=== PATIENT | female | born 1945 | race Caucasian/White ===

== ENCOUNTER 2021-07-03 20:01 | Observation (INO) ==
[2021-07-03] MEDS ORDERED: NITROGLYCERIN SL 0.4 MG TABLET SL STA (20:38)
[2021-07-03] MEDS ORDERED: MORPHINE 2 MG/1 ML SYRINGE IV STA (20:38)
[2021-07-03 20:48] LABS: Basophils % 0.6 % (0.0-0.8); Eosinophils # 0.1 10*3/uL (0.0-0.87); Eosinophils % 1.4 % (0.00-10.9); Hematocrit 40.9 VOL% (35.7-47.0); Hemoglobin 12.9 GM/DL (12.0-16.0); Immature Granulocytes % 0.3 %; Immature Granulocytes Absolute 0.02 #; Lymphocytes # 1.9 10*3/uL (1.4-4.0); Mean Corpuscular HGB Conc 31.5 GM/DL (32-36); Mean Corpuscular Volume 97.6 FL (87-102); Monocytes % 7.7 % (1.7-12.7); Platelet Count 224 T/CUMM (130-400); Red Blood Count 4.19 MC/CUMM (3.8-5.5); Red Cell Distribution Width 12.9 % (9.3-17.3); White Blood Count 6.6 T/CUMM (4-12)
[2021-07-03 21:15] LABS: INR 0.9; PT Patient Result 10.5 SECS (10.5-12.0); Partial Thromboplastin Time 23.2 SECS (23.8-32.1)
[2021-07-03 21:34] LABS: Albumin 3.6 G/DL (3.4-5.0); Bilirubin,Total 0.6 MG/DL (0.20-1.00); Osmolality,Calculated 290.8 MOS/KG (273-304); Potassium 4.9 MMOL/L (3.5-5.1); Total Protein 7.1 G/DL (6.4-8.2)
[2021-07-03] MEDS ORDERED: DEXTROSE 50% 25 GM/50 ML VIAL IV PRN (22:38)
[2021-07-03] MEDS ORDERED: MORPHINE 2 MG/1 ML SYRINGE IV PRN (22:38)
[2021-07-03] MEDS ORDERED: GLUCAGON 1 MG VIAL IM PRN (22:38)
[2021-07-03] MEDS ORDERED: ONDANSETRON 4 MG/2 ML VIAL IV PRN (22:38)
[2021-07-03] MEDS ORDERED: NITROGLYCERIN SL 0.4 MG TABLET SL PRN (22:43)
[2021-07-03] MEDS ORDERED: hydrALAZINE 20 MG/1 ML VIAL IV PRN (22:44)
[2021-07-03] MEDS ORDERED: ENOXAPARIN 100 MG/ML SYRINGE SUBCUT SCH (23:00)
[2021-07-03] MEDS: ENOXAPARIN 100 MG/ML SYRINGE SUBCUT SCH (23:01)
[2021-07-03 23:16] LABS: Basophils % 0.4 % (0.0-0.8); Eosinophils # 0.1 10*3/uL (0.0-0.87); Eosinophils % 1.6 % (0.00-10.9); Hemoglobin 12.5 GM/DL (12.0-16.0); Immature Granulocytes % 0.3 %; Immature Granulocytes Absolute 0.02 #; Lymphocytes # 2.5 10*3/uL (1.4-4.0); Mean Corpuscular HGB Conc 31.3 GM/DL (32-36); Mean Corpuscular Volume 98.3 FL (87-102); Mean Platelet Volume 10.1 FL (9.6-12.0); Monocytes % 9.8 % (1.7-12.7); Neutrophils % 50.9 % (38.7-73.9); Platelet Count 225 T/CUMM (130-400); Red Blood Count 4.07 MC/CUMM (3.8-5.5); Red Cell Distribution Width 12.9 % (9.3-17.3); White Blood Count 6.9 T/CUMM (4-12)
[2021-07-04] MEDS ORDERED: INSULIN REGULAR 100 UNIT/ML SUBCUT STA (01:15)
[2021-07-04 05:01] LABS: Calcium 9.1 MG/DL (8.5-10.1); Osmolality,Calculated 280.8 MOS/KG (273-304); Potassium 3.9 MMOL/L (3.5-5.1); Risk Ratio 4.31
[2021-07-04] MEDS ORDERED: CLINDAMYCIN 300 MG CAPSULE PO SCH (06:00)
[2021-07-04] MEDS: INSULIN REGULAR 100 UNIT/ML SUBCUT SCH ×4 (08:34→20:58)
[2021-07-04] MEDS ORDERED: FUROSEMIDE 20 MG TABLET PO SCH (09:00)
[2021-07-04] MEDS ORDERED: ISOSORBIDE MONONITRATE 30 MG TABLET PO ONE (11:38)
[2021-07-04] MEDS: PANTOPRAZOLE 40 MG TABLET PO SCH (11:47)
[2021-07-04] MEDS: ISOSORBIDE MONONITRATE 60 MG TABLET PO SCH (11:47)
[2021-07-04] MEDS: amLODIPine 2.5 MG TABLET PO SCH (11:47)
[2021-07-04] MEDS: ENOXAPARIN 100 MG/ML SYRINGE SUBCUT SCH (11:47)
[2021-07-04] MEDS: ASPIRIN EC 81 MG TABLET PO SCH (11:47)
[2021-07-04] MEDS: CLOPIDOGREL 75 MG TABLET PO SCH (11:47)
[2021-07-04] MEDS: carvediloL 3.125 MG TABLET PO SCH ×2 (11:47→20:37)
[2021-07-04] MEDS ORDERED: methylPREDNISolone SOD SUC 125 MG/2 ML VIAL IV ONE (12:22)
[2021-07-04] MEDS ORDERED: diphenhydrAMINE 50 MG/1 ML VIAL IV ONE (12:23)
[2021-07-04] MEDS ORDERED: diphenhydrAMINE CAP 25 MG CAPSULE PO ONE (15:05)
[2021-07-04] MEDS ORDERED: DIAZEPAM 5 MG TABLET PO ONE (15:05)
[2021-07-04] MEDS ORDERED: DIAZEPAM 5 MG TABLET ONE (15:26)
[2021-07-04] MEDS ORDERED: HYDROmorphone 2 MG/1 ML VIAL ONE (15:56)
[2021-07-04] MEDS ORDERED: MIDAZOLAM 2 MG/2 ML VIAL ONE (15:56)
[2021-07-04] MEDS: SODIUM CHLORIDE 0.45% 1,000 ML IV SCH (17:59)
[2021-07-04] MEDS ORDERED: INFLUENZA VIRUS VACCINE 0.5 ML SYRINGE IM ONE (18:12)
[2021-07-04] MEDS: ROSUVASTATIN 20 MG TABLET PO SCH (20:36)
[2021-07-04] MEDS: EZETIMIBE 10 MG TABLET PO SCH (20:37)
[2021-07-05] MEDS: SODIUM CHLORIDE 0.45% 1,000 ML IV SCH ×4 (02:20→23:33)
[2021-07-05 05:12] LABS: Basophils % 0.2 % (0.0-0.8); Hematocrit 36.7 VOL% (35.7-47.0); Hemoglobin 11.9 GM/DL (12.0-16.0); Immature Granulocytes % 0.3 %; Immature Granulocytes Absolute 0.02 #; Lymphocytes # 0.8 10*3/uL (1.4-4.0); Lymphocytes % 13.8 % (21.3-54.2); Mean Corpuscular HGB Conc 32.4 GM/DL (32-36); Mean Corpuscular Volume 96.8 FL (87-102); Mean Platelet Volume 10.5 FL (9.6-12.0); Monocytes % 1.2 % (1.7-12.7); Neutrophils % 84.5 % (38.7-73.9); Platelet Count 200 T/CUMM (130-400); Red Blood Count 3.79 MC/CUMM (3.8-5.5); Red Cell Distribution Width 12.8 % (9.3-17.3); White Blood Count 5.9 T/CUMM (4-12)
[2021-07-05 05:45] LABS: Calcium 8.6 MG/DL (8.5-10.1); Osmolality,Calculated 289.2 MOS/KG (273-304); Potassium 4.6 MMOL/L (3.5-5.1)
[2021-07-05] MEDS ORDERED: INSULIN GLARGINE 100 UNIT/ML SUBCUT SCH (09:00)
[2021-07-05] MEDS: PANTOPRAZOLE 40 MG TABLET PO SCH (09:16)
[2021-07-05] MEDS: ISOSORBIDE MONONITRATE 60 MG TABLET PO SCH (09:16)
[2021-07-05] MEDS: amLODIPine 2.5 MG TABLET PO SCH (09:16)
[2021-07-05] MEDS: carvediloL 3.125 MG TABLET PO SCH ×2 (09:16→20:57)
[2021-07-05] MEDS: CLOPIDOGREL 75 MG TABLET PO SCH (09:16)
[2021-07-05] MEDS: ASPIRIN EC 81 MG TABLET PO SCH (09:16)
[2021-07-05] MEDS: CLINDAMYCIN 300 MG CAPSULE PO SCH ×3 (09:16→21:15)
[2021-07-05] MEDS: INSULIN REGULAR 100 UNIT/ML SUBCUT SCH ×5 (09:17→20:57)
[2021-07-05] MEDS ORDERED: INSULIN GLARGINE 100 UNIT/ML SUBCUT ONE (14:30)
[2021-07-05] MEDS: EZETIMIBE 10 MG TABLET PO SCH (20:56)
[2021-07-05] MEDS: ROSUVASTATIN 20 MG TABLET PO SCH (20:57)
[2021-07-06] MEDS: CLINDAMYCIN 300 MG CAPSULE PO SCH (05:08)
[2021-07-06 05:49] LABS: Basophils % 0.5 % (0.0-0.8); Eosinophils % 0.5 % (0.00-10.9); Hematocrit 32.5 VOL% (35.7-47.0); Hemoglobin 10.2 GM/DL (12.0-16.0); Immature Granulocytes % 0.3 %; Immature Granulocytes Absolute 0.02 #; Lymphocytes # 2.2 10*3/uL (1.4-4.0); Lymphocytes % 37.5 % (21.3-54.2); Mean Corpuscular HGB Conc 31.4 GM/DL (32-36); Mean Corpuscular Volume 97.3 FL (87-102); Mean Platelet Volume 10.5 FL (9.6-12.0); Monocytes % 8.9 % (1.7-12.7); Neutrophils % 52.3 % (38.7-73.9); Platelet Count 189 T/CUMM (130-400); Red Blood Count 3.34 MC/CUMM (3.8-5.5); Red Cell Distribution Width 12.9 % (9.3-17.3)
[2021-07-06 06:15] LABS: Calcium 8.2 MG/DL (8.5-10.1); Potassium 3.9 MMOL/L (3.5-5.1)
[2021-07-06] MEDS ORDERED: INSULIN NPH 100 UNIT/ML SUBCUT SCH ×2 (07:30→16:30)
[2021-07-06] MEDS: ASPIRIN EC 81 MG TABLET PO SCH (08:43)
[2021-07-06] MEDS: amLODIPine 2.5 MG TABLET PO SCH (08:43)
[2021-07-06] MEDS: PANTOPRAZOLE 40 MG TABLET PO SCH (08:43)
[2021-07-06] MEDS: CLOPIDOGREL 75 MG TABLET PO SCH (08:44)
[2021-07-06] MEDS: ISOSORBIDE MONONITRATE 60 MG TABLET PO SCH (08:44)
[2021-07-06] MEDS: INSULIN REGULAR 100 UNIT/ML SUBCUT SCH (08:45)
[2021-07-06] MEDS: carvediloL 3.125 MG TABLET PO SCH (08:46)
[2021-07-06 08:56] VITALS: BP 147/66
[2021-07-06] MEDS ORDERED: INSULIN GLARGINE 100 UNIT/ML SUBCUT SCH (09:00)
[2021-07-06] MEDS: SODIUM CHLORIDE 0.45% 1,000 ML IV SCH (11:21)
== END 2021-07-06 11:25 | disposition home or self-care (01) ==
LOC: N.ED 20:01 → INTOOBSV 22:38 → N.EDINP 22:38 → N.TELES 07-04 15:20
PROVIDERS: ADMIT Internal Medicine; ATTEND Internal Medicine

== ENCOUNTER 2021-07-20 16:53 | Inpatient (IN) ==
[2021-07-20] MEDS ORDERED: MORPHINE 2 MG/1 ML SYRINGE IV STA (17:27)
[2021-07-20] MEDS ORDERED: NITROGLYCERIN SL 0.4 MG TABLET SL PRN ×2 (17:27→20:35)
[2021-07-20] MEDS ORDERED: ASPIRIN 325 MG TABLET PO STA (17:27)
[2021-07-20] MEDS ORDERED: NITROGLYCERIN SL 0.4 MG TABLET SL ONE ×2 (17:38→19:56)
[2021-07-20] MEDS ORDERED: ASPIRIN 325 MG TABLET ONE (17:38)
[2021-07-20] MEDS ORDERED: MORPHINE 2 MG/1 ML SYRINGE ONE (17:38)
[2021-07-20 18:29] LABS: Basophils % 0.4 % (0.0-0.8); Eosinophils # 0.1 10*3/uL (0.0-0.87); Eosinophils % 1.3 % (0.00-10.9); Hematocrit 37.3 VOL% (35.7-47.0); Hemoglobin 11.9 GM/DL (12.0-16.0); Immature Granulocytes % 0.4 %; Immature Granulocytes Absolute 0.03 #; Lymphocytes # 1.6 10*3/uL (1.4-4.0); Lymphocytes % 22.9 % (21.3-54.2); Mean Corpuscular HGB Conc 31.9 GM/DL (32-36); Mean Corpuscular Volume 94.9 FL (87-102); Mean Platelet Volume 9.4 FL (9.6-12.0); Monocytes % 6.5 % (1.7-12.7); Neutrophils % 68.5 % (38.7-73.9); Platelet Count 296 T/CUMM (130-400); Red Blood Count 3.93 MC/CUMM (3.8-5.5); Red Cell Distribution Width 13.2 % (9.3-17.3); White Blood Count 7.1 T/CUMM (4-12)
[2021-07-20 18:38] LABS: INR 0.9; PT Patient Result 10.3 SECS (10.5-12.0)
[2021-07-20 18:46] LABS: Albumin 3.7 G/DL (3.4-5.0); Bilirubin,Total 0.5 MG/DL (0.20-1.00); Calcium 9.4 MG/DL (8.5-10.1); Osmolality,Calculated 289.7 MOS/KG (273-304); Potassium 3.8 MMOL/L (3.5-5.1); Total Protein 6.7 G/DL (6.4-8.2)
[2021-07-20] MEDS ORDERED: NITROGLYCERIN SL 0.4 MG TABLET SL STA (19:44)
[2021-07-20] MEDS ORDERED: DEXTROSE 50% 25 GM/50 ML SYRINGE IV PRN (20:33)
[2021-07-20] MEDS ORDERED: ONDANSETRON 4 MG/2 ML VIAL IV PRN (20:33)
[2021-07-20] MEDS ORDERED: GLUCAGON 1 MG VIAL IM PRN (20:33)
[2021-07-20] MEDS ORDERED: ACETAMINOPHEN 325 MG TABLET PO PRN (20:33)
[2021-07-20] MEDS ORDERED: MORPHINE 2 MG/1 ML SYRINGE IV PRN (20:33)
[2021-07-20] MEDS ORDERED: hydrALAZINE 20 MG/1 ML VIAL IV PRN (20:33)
[2021-07-20] MEDS ORDERED: ENOXAPARIN 40 MG/0.4 ML SYRINGE ONE (20:45)
[2021-07-20] MEDS: INSULIN REGULAR 100 UNIT/ML SUBCUT SCH (20:52)
[2021-07-20] MEDS ORDERED: INSULIN REGULAR 100 UNIT/ML ONE (20:55)
[2021-07-20] MEDS ORDERED: ENOXAPARIN 40 MG/0.4 ML SYRINGE SUBCUT SCH (21:00)
[2021-07-21] MEDS: ENOXAPARIN 100 MG/ML SYRINGE SUBCUT SCH ×2 (01:16→12:51)
[2021-07-21 06:12] LABS: Basophils % 0.6 % (0.0-0.8); Eosinophils # 0.1 10*3/uL (0.0-0.87); Eosinophils % 2.7 % (0.00-10.9); Hematocrit 32.8 VOL% (35.7-47.0); Hemoglobin 10.3 GM/DL (12.0-16.0); Immature Granulocytes % 0.2 %; Immature Granulocytes Absolute 0.01 #; Lymphocytes # 2.4 10*3/uL (1.4-4.0); Lymphocytes % 45.5 % (21.3-54.2); Mean Corpuscular HGB Conc 31.4 GM/DL (32-36); Mean Corpuscular Volume 97.3 FL (87-102); Mean Platelet Volume 9.8 FL (9.6-12.0); Monocytes % 9.3 % (1.7-12.7); Neutrophils % 41.7 % (38.7-73.9); Platelet Count 248 T/CUMM (130-400); Red Blood Count 3.37 MC/CUMM (3.8-5.5); Red Cell Distribution Width 13.1 % (9.3-17.3); White Blood Count 5.3 T/CUMM (4-12)
[2021-07-21 06:31] LABS: Albumin 2.9 G/DL (3.4-5.0); Bilirubin,Total 1.1 MG/DL (0.20-1.00); Osmolality,Calculated 283.5 MOS/KG (273-304); Potassium 3.8 MMOL/L (3.5-5.1); Risk Ratio 2.11; Total Protein 5.9 G/DL (6.4-8.2); VLDL Cholesterol 22.6 MG/DL
[2021-07-21] MEDS ORDERED: INSULIN REGULAR 100 UNIT/ML SUBCUT SCH (07:30)
[2021-07-21] MEDS ORDERED: carvediloL 3.125 MG TABLET PO SCH (08:00)
[2021-07-21] MEDS ORDERED: amLODIPine 2.5 MG TABLET PO SCH (09:00)
[2021-07-21] MEDS ORDERED: ERGOCALCIFEROL 50,000 UNIT CAPSULE PO SCH (09:00)
[2021-07-21] MEDS: ISOSORBIDE MONONITRATE 60 MG TABLET PO SCH (09:03)
[2021-07-21] MEDS: PREGABALIN 100 MG CAPSULE PO SCH (09:03)
[2021-07-21] MEDS: FUROSEMIDE 40 MG TABLET PO SCH (09:03)
[2021-07-21] MEDS: PANTOPRAZOLE 40 MG TABLET PO SCH (09:03)
[2021-07-21] MEDS: ROSUVASTATIN 20 MG TABLET PO SCH (09:03)
[2021-07-21] MEDS: INSULIN REGULAR 100 UNIT/ML SUBCUT SCH ×4 (09:03→22:07)
[2021-07-21] MEDS: CLOPIDOGREL 75 MG TABLET PO SCH (09:03)
[2021-07-21] MEDS: ASPIRIN EC 81 MG TABLET PO SCH (09:03)
[2021-07-21] MEDS: amLODIPine 5 MG TABLET PO SCH (09:06)
[2021-07-21] MEDS: carvediloL 12.5 MG TABLET PO SCH ×2 (09:07→22:06)
[2021-07-21] MEDS ORDERED: DEXTROSE 50% 25 GM/50 ML SYRINGE IV PRN (09:08)
[2021-07-21] MEDS ORDERED: GLUCAGON 1 MG VIAL IM PRN (09:08)
[2021-07-21] MEDS: INSULIN NPH 100 UNIT/ML SUBCUT SCH (22:08)
[2021-07-22] MEDS: ENOXAPARIN 100 MG/ML SYRINGE SUBCUT SCH ×2 (00:38→14:10)
[2021-07-22] MEDS: INSULIN REGULAR 100 UNIT/ML SUBCUT SCH ×4 (08:26→22:09)
[2021-07-22] MEDS: carvediloL 12.5 MG TABLET PO SCH ×2 (08:27→21:14)
[2021-07-22] MEDS: PREGABALIN 100 MG CAPSULE PO SCH (08:27)
[2021-07-22] MEDS: CLOPIDOGREL 75 MG TABLET PO SCH (08:27)
[2021-07-22] MEDS: PANTOPRAZOLE 40 MG TABLET PO SCH (08:27)
[2021-07-22] MEDS: ROSUVASTATIN 20 MG TABLET PO SCH (08:27)
[2021-07-22] MEDS: ISOSORBIDE MONONITRATE 60 MG TABLET PO SCH (08:27)
[2021-07-22] MEDS: ASPIRIN EC 81 MG TABLET PO SCH (08:27)
[2021-07-22] MEDS: amLODIPine 5 MG TABLET PO SCH (08:27)
[2021-07-22] MEDS: FUROSEMIDE 40 MG TABLET PO SCH (08:27)
[2021-07-22 10:19] LABS: Calcium 8.3 MG/DL (8.5-10.1); Osmolality,Calculated 283.8 MOS/KG (273-304); Potassium 3.2 MMOL/L (3.5-5.1)
[2021-07-22] MEDS ORDERED: MAGNESIUM SULF RIDER 2 GM/50 ML PREMIX IV PRN (12:05)
[2021-07-22] MEDS: POTASSIUM CHLORIDE RIDER 10 MEQ/100 ML PREMIX IV PRN ×2 (15:30→17:09)
[2021-07-22] MEDS: INSULIN NPH 100 UNIT/ML SUBCUT SCH (22:10)
[2021-07-23] MEDS ORDERED: ENOXAPARIN 100 MG/ML SYRINGE SUBCUT ONE (00:20)
[2021-07-23] MEDS: ENOXAPARIN 100 MG/ML SYRINGE SUBCUT SCH ×2 (00:24→12:38)
[2021-07-23 05:14] LABS: Basophils % 0.6 % (0.0-0.8); Eosinophils # 0.2 10*3/uL (0.0-0.87); Eosinophils % 3.6 % (0.00-10.9); Hematocrit 31.3 VOL% (35.7-47.0); Hemoglobin 9.9 GM/DL (12.0-16.0); Immature Granulocytes % 0.2 %; Immature Granulocytes Absolute 0.01 #; Lymphocytes % 38.6 % (21.3-54.2); Mean Corpuscular HGB Conc 31.6 GM/DL (32-36); Mean Corpuscular Volume 94.8 FL (87-102); Mean Platelet Volume 9.7 FL (9.6-12.0); Monocytes % 10.6 % (1.7-12.7); Neutrophils % 46.4 % (38.7-73.9); Platelet Count 213 T/CUMM (130-400); Red Cell Distribution Width 12.9 % (9.3-17.3); White Blood Count 5.2 T/CUMM (4-12)
[2021-07-23 05:54] LABS: Blood Urea Nitrogen 14 MG/DL (7-18); Calcium 8.5 MG/DL (8.5-10.1); Carbon Dioxide 25 MMOL/L (21-32); Estimated Glom Filtration Rate 81 ML/MIN; Glucose 166 MG/DL (74-106); Osmolality,Calculated 285.3 MOS/KG (273-304); Potassium 3.5 MMOL/L (3.5-5.1); Sodium 141 MMOL/L (136-145)
[2021-07-23] MEDS ORDERED: DIAZEPAM 5 MG TABLET PO ONE (06:00)
[2021-07-23] MEDS ORDERED: diphenhydrAMINE CAP 25 MG CAPSULE PO ONE (06:00)
[2021-07-23] MEDS: SODIUM CHLORIDE 0.45% 1,000 ML IV SCH ×2 (07:31→17:17)
[2021-07-23] MEDS ORDERED: HEPARIN/NACL 0.9% 2 UNITS/ML 2,000 UNIT/1,000 ML BAG IV ONE (08:57)
[2021-07-23] MEDS ORDERED: LIDOCAINE 1%/EPI INJ 20 ML VIAL ONE (08:59)
[2021-07-23] MEDS: CLOPIDOGREL 75 MG TABLET PO SCH (09:20)
[2021-07-23] MEDS: INSULIN REGULAR 100 UNIT/ML SUBCUT SCH ×5 (09:21→21:40)
[2021-07-23] MEDS: carvediloL 12.5 MG TABLET PO SCH ×2 (09:21→21:32)
[2021-07-23] MEDS: PANTOPRAZOLE 40 MG TABLET PO SCH (09:21)
[2021-07-23] MEDS: ASPIRIN EC 81 MG TABLET PO SCH (09:21)
[2021-07-23] MEDS: amLODIPine 5 MG TABLET PO SCH (09:21)
[2021-07-23] MEDS ORDERED: MIDAZOLAM 2 MG/2 ML VIAL ONE (09:38)
[2021-07-23] MEDS ORDERED: fentaNYL 100 MCG/2 ML VIAL ONE ×2 (09:39→10:06)
[2021-07-23] MEDS ORDERED: methylPREDNISolone SOD SUC 125 MG/2 ML VIAL ONE (09:48)
[2021-07-23] MEDS: PREGABALIN 100 MG CAPSULE PO SCH (10:37)
[2021-07-23] MEDS: ISOSORBIDE MONONITRATE 60 MG TABLET PO SCH (10:37)
[2021-07-23] MEDS: FUROSEMIDE 40 MG TABLET PO SCH (10:37)
[2021-07-23] MEDS: POTASSIUM CHLORIDE 20 MEQ TABLET PO PRN ×2 (10:37→17:06)
[2021-07-23] MEDS: ROSUVASTATIN 20 MG TABLET PO SCH (10:41)
[2021-07-23] MEDS: INSULIN NPH 100 UNIT/ML SUBCUT SCH (21:41)
[2021-07-24] MEDS: ENOXAPARIN 100 MG/ML SYRINGE SUBCUT SCH (01:27)
[2021-07-24] MEDS: INSULIN REGULAR 100 UNIT/ML SUBCUT SCH ×2 (08:38→12:14)
[2021-07-24] MEDS: ISOSORBIDE MONONITRATE 60 MG TABLET PO SCH (08:38)
[2021-07-24] MEDS: ROSUVASTATIN 20 MG TABLET PO SCH (08:38)
[2021-07-24] MEDS: amLODIPine 5 MG TABLET PO SCH (08:39)
[2021-07-24] MEDS: FUROSEMIDE 40 MG TABLET PO SCH (08:39)
[2021-07-24] MEDS: ASPIRIN EC 81 MG TABLET PO SCH (08:39)
[2021-07-24] MEDS: PREGABALIN 100 MG CAPSULE PO SCH (08:39)
[2021-07-24] MEDS: CLOPIDOGREL 75 MG TABLET PO SCH (08:39)
[2021-07-24] MEDS: PANTOPRAZOLE 40 MG TABLET PO SCH (08:39)
[2021-07-24] MEDS: carvediloL 12.5 MG TABLET PO SCH (08:39)
[2021-07-24 09:06] LABS: Basophils % 0.1 % (0.0-0.8); Hemoglobin 10.5 GM/DL (12.0-16.0); Immature Granulocytes % 0.8 %; Immature Granulocytes Absolute 0.07 #; Lymphocytes # 1.5 10*3/uL (1.4-4.0); Lymphocytes % 17.3 % (21.3-54.2); Mean Corpuscular HGB Conc 31.8 GM/DL (32-36); Mean Corpuscular Volume 94.3 FL (87-102); Mean Platelet Volume 9.8 FL (9.6-12.0); Monocytes % 7.3 % (1.7-12.7); Neutrophils % 74.5 % (38.7-73.9); Platelet Count 246 T/CUMM (130-400); White Blood Count 8.5 T/CUMM (4-12)
[2021-07-24 09:35] LABS: Osmolality,Calculated 289.5 MOS/KG (273-304); Potassium 4.4 MMOL/L (3.5-5.1)
[2021-07-24] MEDS ORDERED: INSULIN LISPRO 100 UNIT/ML SUBCUT SCH (11:30)
[2021-07-24 11:33] VITALS: BP 130/63
[2021-07-25] MEDS ORDERED: ENOXAPARIN 40 MG/0.4 ML SYRINGE SUBCUT SCH (01:30)
[2021-07-25] MEDS ORDERED: VERAPAMIL SR 120 MG TABLET PO SCH (09:00)
== END 2021-07-24 13:08 | disposition home or self-care (01) | DRG 281 ==
LOC: N.ED 16:53 → N.EDINP 16:53 → SUATTDRO 20:32 → N.EDINP 23:45 → N.TELEN 07-21 00:09
PROVIDERS: ADMIT Internal Medicine; ATTEND Emergency Medicine

== ENCOUNTER 2022-08-13 07:38 | Observation (INO) ==
[2022-08-13] MEDS ORDERED: HEPARIN 5,000 UNIT/1 ML VIAL IV ONE (08:04)
[2022-08-13] MEDS ORDERED: ASPIRIN 325 MG TABLET PO STA (08:04)
[2022-08-13] MEDS ORDERED: MORPHINE 2 MG/1 ML SYRINGE IV STA (08:04)
[2022-08-13] MEDS ORDERED: METOPROLOL TARTRATE 5 MG/5 ML VIAL IV STA (08:04)
[2022-08-13] MEDS ORDERED: NITROGLYCERIN 2% OINT 1 INCH/GM PACK TOP STA (08:04)
[2022-08-13] MEDS ORDERED: ONDANSETRON 4 MG/2 ML VIAL IV STA (08:04)
[2022-08-13 08:33] LABS: Albumin 3.5 G/DL (3.4-5.0); Bilirubin,Total 0.7 MG/DL (0.20-1.00); Calcium 9.2 MG/DL (8.5-10.1); Osmolality,Calculated 295.4 MOS/KG (273-304); Potassium 4.3 MMOL/L (3.5-5.1); Total Protein 6.6 G/DL (6.4-8.2)
[2022-08-13 09:05] LABS: Basophils % 0.4 % (0.0-0.8); Eosinophils # 0.1 10*3/uL (0.0-0.87); Eosinophils % 1.4 % (0.00-10.9); Hematocrit 40.8 VOL% (35.7-47.0); Hemoglobin 13.1 GM/DL (12.0-16.0); Immature Granulocytes % 0.1 %; Immature Granulocytes Absolute 0.01 #; Lymphocytes # 1.6 10*3/uL (1.4-4.0); Lymphocytes % 22.6 % (21.3-54.2); Mean Corpuscular HGB Conc 32.1 GM/DL (32-36); Mean Corpuscular Volume 96.2 FL (87-102); Mean Platelet Volume 10.2 FL (9.6-12.0); Monocytes # 0.6 10*3/uL (0.11-0.8); Monocytes % 8.2 % (1.7-12.7); Neutrophils % 67.3 % (38.7-73.9); Platelet Count 225 T/CUMM (130-400); Red Blood Count 4.24 MC/CUMM (3.8-5.5); Red Cell Distribution Width 12.8 % (9.3-17.3); White Blood Count 7.1 T/CUMM (4-12)
[2022-08-13] MEDS ORDERED: ONDANSETRON 4 MG/2 ML VIAL IV PRN (09:19)
[2022-08-13] MEDS ORDERED: ALUMINUM/MAGNES/SIMETH MAX STR 30 ML UDCUP PO PRN (09:19)
[2022-08-13] MEDS ORDERED: SIMETHICONE CHEW 125 MG TABLET PO PRN (09:19)
[2022-08-13] MEDS ORDERED: LACTULOSE 20 GM/30 ML UDCUP PO PRN (09:19)
[2022-08-13] MEDS ORDERED: CALCIUM CARBONATE CHEW 500 MG TABLET PO PRN (09:19)
[2022-08-13] MEDS ORDERED: MORPHINE 2 MG/1 ML SYRINGE IV PRN (09:19)
[2022-08-13] MEDS ORDERED: ZALEPLON 5 MG CAPSULE PO PRN (09:19)
[2022-08-13] MEDS ORDERED: DOCUSATE SODIUM 100 MG CAPSULE PO PRN (09:19)
[2022-08-13] MEDS ORDERED: NITROGLYCERIN SL 0.4 MG TABLET SL PRN (10:09)
[2022-08-13] MEDS ORDERED: GLUCAGON 1 MG VIAL IM PRN (10:15)
[2022-08-13] MEDS ORDERED: DEXTROSE 10% 250 ML BAG IV PRN (10:15)
[2022-08-13] MEDS: ROSUVASTATIN 20 MG TABLET PO SCH (12:28)
[2022-08-13] MEDS: carvediloL 3.125 MG TABLET PO SCH ×2 (12:28→21:50)
[2022-08-13] MEDS: VERAPAMIL SR 120 MG TABLET PO SCH (12:28)
[2022-08-13] MEDS: ASPIRIN EC 81 MG TABLET PO SCH (12:28)
[2022-08-13] MEDS: PREGABALIN 100 MG CAPSULE PO SCH (12:28)
[2022-08-13] MEDS: ISOSORBIDE MONONITRATE 30 MG TABLET PO SCH (12:28)
[2022-08-13] MEDS: DAPAGLIFLOZIN 10 MG TABLET PO SCH (12:28)
[2022-08-13] MEDS: INSULIN LISPRO 100 UNIT/ML SUBCUT SCH ×3 (12:30→21:50)
[2022-08-13] MEDS: INSULIN NPH 100 UNIT/ML SUBCUT SCH (21:50)
[2022-08-14 05:34] LABS: Basophils % 0.6 % (0.0-0.8); Eosinophils # 0.1 10*3/uL (0.0-0.87); Eosinophils % 2.7 % (0.00-10.9); Hematocrit 38.2 VOL% (35.7-47.0); Hemoglobin 12.2 GM/DL (12.0-16.0); Immature Granulocytes % 0.2 %; Immature Granulocytes Absolute 0.01 #; Lymphocytes # 1.8 10*3/uL (1.4-4.0); Lymphocytes % 38.4 % (21.3-54.2); Mean Corpuscular HGB Conc 31.9 GM/DL (32-36); Mean Corpuscular Volume 97.4 FL (87-102); Mean Platelet Volume 11.3 FL (9.6-12.0); Monocytes # 0.5 10*3/uL (0.11-0.8); Monocytes % 10.3 % (1.7-12.7); Neutrophils % 47.8 % (38.7-73.9); Platelet Count 158 T/CUMM (130-400); Red Blood Count 3.92 MC/CUMM (3.8-5.5); White Blood Count 4.8 T/CUMM (4-12)
[2022-08-14 06:06] LABS: Osmolality,Calculated 283.3 MOS/KG (273-304); Potassium 4.3 MMOL/L (3.5-5.1); Risk Ratio 1.98; Thyroid Stimulating Hormone 1.12 uIU/ml (0.358-3.74); VLDL Cholesterol 32.4 MG/DL
[2022-08-14] MEDS ORDERED: SODIUM CHLORIDE 0.9% 1,000 ML IV SCH (08:00)
[2022-08-14] MEDS: ISOSORBIDE MONONITRATE 30 MG TABLET PO SCH (09:09)
[2022-08-14] MEDS: ASPIRIN EC 81 MG TABLET PO SCH (09:10)
[2022-08-14] MEDS: ROSUVASTATIN 20 MG TABLET PO SCH (09:10)
[2022-08-14] MEDS: DAPAGLIFLOZIN 10 MG TABLET PO SCH (09:10)
[2022-08-14] MEDS: CLOPIDOGREL 75 MG TABLET PO SCH (09:11)
[2022-08-14] MEDS: carvediloL 3.125 MG TABLET PO SCH ×2 (09:11→20:43)
[2022-08-14] MEDS: PANTOPRAZOLE 40 MG TABLET PO SCH (09:11)
[2022-08-14] MEDS: PREGABALIN 100 MG CAPSULE PO SCH (09:12)
[2022-08-14] MEDS: INSULIN LISPRO 100 UNIT/ML SUBCUT SCH ×4 (09:13→20:44)
[2022-08-14] MEDS: ENOXAPARIN 40 MG/0.4 ML SYRINGE SUBCUT SCH (09:14)
[2022-08-14] MEDS: VERAPAMIL SR 120 MG TABLET PO SCH (09:19)
[2022-08-14] MEDS ORDERED: DIAZEPAM 5 MG TABLET PO ONE (11:30)
[2022-08-14] MEDS ORDERED: diphenhydrAMINE CAP 50 MG CAPSULE PO ONE (11:30)
[2022-08-14] MEDS ORDERED: NITROGLYCERIN DRIP 50 MG/250 ML BOTTLE IV ONE (12:02)
[2022-08-14] MEDS ORDERED: VERAPAMIL 5 MG/2 ML VIAL ONE ×2 (12:02→13:10)
[2022-08-14] MEDS ORDERED: HEPARIN/NACL 0.9% 2 UNITS/ML 2,000 UNIT/1,000 ML BAG IV ONE (12:02)
[2022-08-14] MEDS ORDERED: HYDROmorphone 1 MG/1 ML SYRINGE ONE (12:09)
[2022-08-14] MEDS ORDERED: MIDAZOLAM 2 MG/2 ML VIAL ONE (12:09)
[2022-08-14] MEDS ORDERED: methylPREDNISolone SOD SUC 125 MG/2 ML VIAL ONE (12:39)
[2022-08-14] MEDS ORDERED: ENOXAPARIN 30 MG/0.3 ML SYRINGE ONE (13:02)
[2022-08-14] MEDS: INSULIN NPH 100 UNIT/ML SUBCUT SCH (22:03)
[2022-08-15] MEDS: INSULIN LISPRO 100 UNIT/ML SUBCUT SCH ×2 (08:38→11:50)
[2022-08-15] MEDS: ENOXAPARIN 40 MG/0.4 ML SYRINGE SUBCUT SCH (08:39)
[2022-08-15] MEDS: ISOSORBIDE MONONITRATE 30 MG TABLET PO SCH (08:39)
[2022-08-15] MEDS: VERAPAMIL SR 120 MG TABLET PO SCH (08:39)
[2022-08-15] MEDS: ASPIRIN EC 81 MG TABLET PO SCH (08:39)
[2022-08-15] MEDS: PANTOPRAZOLE 40 MG TABLET PO SCH (08:39)
[2022-08-15] MEDS: PREGABALIN 100 MG CAPSULE PO SCH (08:39)
[2022-08-15] MEDS: DAPAGLIFLOZIN 10 MG TABLET PO SCH (08:39)
[2022-08-15] MEDS: CLOPIDOGREL 75 MG TABLET PO SCH (08:39)
[2022-08-15] MEDS: ROSUVASTATIN 20 MG TABLET PO SCH (08:39)
[2022-08-15] MEDS: carvediloL 3.125 MG TABLET PO SCH (08:39)
[2022-08-15] MEDS ORDERED: ALUM/MAG/SIMETH/LIDO VISC 1:1 30 ML BOTTLE PO ONE (10:07)
[2022-08-15 10:20] LABS: Calcium 9.3 MG/DL (8.5-10.1); Potassium 4.7 MMOL/L (3.5-5.1)
[2022-08-15] MEDS ORDERED: SERTRALINE 25 MG TABLET PO ONE (10:26)
[2022-08-15] MEDS ORDERED: KETOROLAC 30 MG/1 ML VIAL IV ONE (10:27)
[2022-08-15 11:51] VITALS: BP 138/79
[2022-08-15] MEDS ORDERED: SERTRALINE 25 MG TABLET PO SCH (21:00)
== END 2022-08-15 14:23 | disposition home or self-care (01) ==
LOC: N.ED 07:38 → N.EDINP 07:38 → N.TELEN 10:15
PROVIDERS: ADMIT Internal Medicine Cardiovascular Disease; ATTEND Internal Medicine Cardiovascular Disease